=== PATIENT | female | born 1960 | race Caucasian/White ===

== ENCOUNTER → 2018-12-02 | Outpatient (CLI) | payer OTHER, SELFPAY ==
[2018-11-10 16:18] VITALS: BMI 23.1
--- NOTE | 2018-12-02 16:58 | MRI_ITS ---
ACR Level 3 findings have been noted. An addendum which confirms receipt of the report will follow. STUDY: MRI BRAIN WITH AND WITHOUT CONTRAST REASON FOR EXAM: Female, 58 years old. Frequent headaches for 11 months. TECHNIQUE: Standardized multiplanar fat and water weighted pulse sequences were obtained. 18 ml of IV Dotarem was administered for the contrast portion of the examination. COMPARISON: Prior comparison studies are not available for review at this time. FINDINGS: There is mild cerebral atrophy with widening of the extra-axial spaces and ventricular dilatation. Normal white matter tracts of the supratentorial brain. There appears to be some restricted diffusion within the left paramedian and right paramedian jerry possibly related to acute ischemia. This is best seen on diffusion-weighted weighted images #10 and 9. Normal T2* images of the brain without demonstrated susceptibility artifact. There is no demonstrated hemosiderin stain. Normal bilateral basal ganglia. Normal thalami. There is no extra-axial fluid accumulation. Normal flow voids within the major intracranial circulation suggesting patency by spin echo criteria. Normal venous enhancement. There is no enhancing intra-axial or extra-axial abnormality. Normal sella turcica, pituitary gland, infundibular stalk, optic chiasm and hypothalamus. Normal tectal plate and pineal gland. Normal midbrain, jerry and medulla. Normal cerebellum. There are large basal cisterns. Normal bilateral temporal bones. Normal bilateral internal auditory canals. No demonstrated orbital abnormality, within the constraints of a routine brain study. Normal visualized paranasal sinuses. Normal calvarium and skull base. Normal visualized soft tissue structures. Normal visualized upper cervical spine. MRI/Brain W/WO Contrast IMPRESSION: Apparent restricted diffusion involving the jerry. This suggests possible acute ischemia versus other etiologies for cytoxic edema. Electronically Signed: Yenni Sutton MD at 10:04 EDT , Service support ,
== END | disposition home or self-care (01) ==
PROVIDERS: Family Provider Family Medicine; PCP Family Medicine; Referring Provider Family Medicine; Visit Provider Family Medicine
DX: R51 Headache (principal)
CPT/HCPCS: 70553; A9575

== ENCOUNTER → 2019-04-19 | Outpatient (CLI) | payer BC, SELFPAY ==
[2019-04-06 09:23] VITALS: BMI 26.4
[2019-04-19 11:36] LABS: Mucous, Urine 0 SEEN /hpf (<or=2+); Red Blood Cells-Urine 0 SEEN /hpf (0-5); White Blood Cells 0 SEEN /hpf (0-5)
[2019-04-19 12:35] LABS: Color, Urine Yellow (Yellow); Glucose, Dipstick Normal (Normal); Ketone-Dipstick Negative (Negative); Leukocyte Esterase-Dipstick Negative /ul (Negative); Nitrite-Dipstick Negative (Negative); Occult Blood-Urine Negative /ul (Negative); Protein-Dipstick Negative (Negative); Urine Bilirubin Dipstick Negative (Negative); Urine Clarity Clear (Clear); Urine Urobilinogen Normal (Normal)
[2019-04-19 12:46] LABS: Bacteria RARE /hpf (None Seen); Squamous Epithelial Cells - UA 0-5 SEEN /hpf (5-10)
== END | disposition home or self-care (01) ==
LOC: BIMLAB 11:26
PROVIDERS: PCP Family Medicine; Referring Provider Nurse Practitioner Family; Visit Provider Nurse Practitioner Family
DX: R35.0 Frequency of micturition (principal)
CPT/HCPCS: 81001; 87086; 87088

== ENCOUNTER → 2020-07-31 10:04 | Outpatient (CLI) | payer BC, SELFPAY ==
[2020-07-31 09:28] VITALS: BMI 23.1
[2020-07-31 12:41] LABS: Absolute Lymphocyte Count 1.94 X10^3/uL (0.83-4.51); Absolute Neutrophil Count 3.4 X10^3/uL (2.0-7.7); Basophil# 0.04 X10^3/uL; Basophil% 0.7 % (0-1); Eosinophil# 0.16 X10^3/uL; Eosinophils% 2.7 % (0-5); Hematocrit 38.6 % (37-47); Hemoglobin 12.1 g/dL (12.0-15.0); Lymphocyte # 1.94 X10^3/ul (0.83-4.51); Lymphocyte % 32.6 % (19-41); Mean Corp Hgb Conc 31.3 g/dL (32-36); Mean Corpuscular Hgb 26.5 pg (27.0-32.0); Mean Corpuscular Volume 84.5 fL (81-99); Mean Platelet Vol. 9.8 fl (6.2-12.0); Monocyte# 0.42 X10^3/uL; Monocyte% 7.1 % (0-10); NRBC Flagged by Analyzer 0 % (0-5); Neutrophil # 3.37 X10^3/uL (2.7-7.7); Neutrophil % 56.6 % (47-70); Platelet Count 279 K/mm3 (150-450); RBC Distribution Width CV 14.1 % (11.6-14.6); RBC Distribution Width SD 42.9 fl (35.1-43.9); Red Blood Count 4.57 M/mm3 (4.2-5.4)
[2020-07-31 12:51] LABS: ALB/GLOB Ratio 1.1 RATIO (0.9-2.4); AST(SGOT) 17 U/L (15-37); Alanine Aminotransfer ALT/SGPT 23 U/L (13-56); Albumin, Serum 3.7 g/dL (3.2-5.0); Alkaline Phosphatase 65 U/L (45-117); Anion Gap 5 (5-15); BUN 17 mg/dL (7-18); BUN/Creat Ratio 18.2 RATIO (10-20); Calcium,Total 8.7 mg/dL (8.5-10.1); Chloride 106 mmol/L (98-107); Cholesterol 161 mg/dL (200); Color, Urine Yellow (Yellow); Creatinine, Serum 0.93 mg/dL (0.55-1.02); EST Glomerular Filtration Rate 65 mL/min (>60); Est Glom Filt Rate - Afr Amer 79 mL/min (>60); Globulin 3.3 g/dL (2.2-4.2); Glucose 120 mg/dL (74-106); Glucose, Dipstick Normal (Normal); High Density Lipoprotein 42 mg/dL; Ketone-Dipstick 5 mg/dl (Negative); Leukocyte Esterase-Dipstick 25 /ul (Negative); Nitrite-Dipstick Negative (Negative); Occult Blood-Urine Negative /ul (Negative); Potassium 4.3 mmol/L (3.5-5.1); Protein-Dipstick 15 mg/dl (Negative); Sodium Level 141 mmol/L (136-145); Specific Gravity, Urine 1.025 (1.002-1.030); Triglycerides 110 mg/dL; Urine Bilirubin Dipstick Negative (Negative); Urine Clarity Sl. Cloudy (Clear); Urine Urobilinogen Normal (Normal); Very Low Density Lipoprotein 22 mg/dL (5-40)
== END ==
PROVIDERS: PCP Family Medicine; Referring Provider Physician Assistant; Visit Provider Physician Assistant
DX: Z00.00 Encounter for general adult medical examination without abnormal findings (principal); I10 Essential (primary) hypertension; M54.9 Dorsalgia, unspecified
CPT/HCPCS: 36415; 80053; 80061; 81002; 85025

== ENCOUNTER → 2020-09-18 | Outpatient (CLI) | payer BC, SELFPAY ==
[2020-09-18 09:49] VITALS: BMI 23.1
[2020-09-20 20:12] LABS: HPV Reflexed? NOT INDICATED
== END | disposition home or self-care (01) ==
LOC: LABSPEC 10:44
PROVIDERS: PCP Family Medicine; Referring Provider Family Medicine; Visit Provider Family Medicine
DX: Z01.419 Encounter for gynecological examination (general) (routine) without abnormal findings (principal)
CPT/HCPCS: 88175; G0145

== ENCOUNTER → 2020-10-17 09:48 | Outpatient (CLI) | payer BC, SELFPAY ==
--- NOTE | 2020-10-17 09:51 | BI_ITS ---
MAMMOGRAPHY - UNILATERAL DIAGNOSTIC: RIGHT BREAST REASON FOR EXAM: Female, 60 years old. Abnormal screening mammogram. PERTINENT HISTORY: Non-contributory. TECHNIQUE: Compression spot views of the right breast in the mediolateral oblique and craniocaudad views were obtained. CAD: Full Field Digital Mammography with Computer Added Detection was performed. COMPARISON: Comparison is made with prior examination 10/02/2020. FINDINGS: Breast Composition: There are scattered areas of fibroglandular density. There are no dominant masses or suspicious calcifications. No other significant abnormalities are identified. BI/DIAG MAMM W/CAD, UNILAT IMPRESSION: Negative unilateral diagnostic mammogram. Yearly followup mammogram recommended. (A) ASSESSMENT CATEGORY: BIRADS Category 1: Negative. A letter regarding these results will be sent to the patient by the facility within 30 days. Approximately 10% of breast cancers are not detected by mammography. A normal mammogram should not delay biopsy of a clinically suspicious abnormality. Electronically Signed: Nolberto Elizondo MD at 11:32 EDT , Service support ,
== END ==
PROVIDERS: PCP Family Medicine; Visit Provider Surgery
DX: N63.10 Unspecified lump in the right breast, unspecified quadrant (principal); R92.8 Other abnormal and inconclusive findings on diagnostic imaging of breast
CPT/HCPCS: 77065

== ENCOUNTER → 2021-01-09 | Outpatient (CLI) | payer BC, SELFPAY ==
[2021-01-09 10:51] LABS: Color, Urine Yellow (Yellow); Glucose, Dipstick Normal (Normal); Ketone-Dipstick Negative (Negative); Leukocyte Esterase-Dipstick 500 /ul (Negative); Nitrite-Dipstick Positive (Negative); Occult Blood-Urine 150 /ul (Negative); Protein-Dipstick 30 mg/dl (Negative); Specific Gravity, Urine 1.015 (1.002-1.030); Urine Bilirubin Dipstick Negative (Negative); Urine Clarity Cloudy (Clear); Urine Urobilinogen Normal (Normal)
[2021-01-09 10:57] LABS: White Blood Cells >100 SEEN /hpf (0-5)
[2021-01-09 10:58] LABS: Bacteria 1+ /hpf (None Seen); Calcium Oxalate Crystals Ur 1+ /hpf (<or=2+); Mucous, Urine RARE /hpf (<or=2+); Red Blood Cells-Urine 0-5 SEEN /hpf (0-5); Squamous Epithelial Cells - UA 0-5 SEEN /hpf (5-10)
== END | disposition home or self-care (01) ==
LOC: LABSPEC 10:42
PROVIDERS: PCP Family Medicine; Visit Provider Physician Assistant
DX: R30.0 Dysuria (principal)
CPT/HCPCS: 81001; 87086; 87088; 87186

== ENCOUNTER → 2022-12-01 | Outpatient (CLI) | payer OTHER, SELFPAY ==
[2022-12-01 08:12] LABS: Mucous, Urine 0 SEEN /hpf (<or=2+); Red Blood Cells-Urine 0 SEEN /hpf (0-5); White Blood Cells 0 SEEN /hpf (0-5)
[2022-12-01 12:41] LABS: Color, Urine Yellow (Yellow); Glucose, Dipstick Normal (Normal); Ketone-Dipstick Negative (Negative); Leukocyte Esterase-Dipstick 25 /ul (Negative); Nitrite-Dipstick Negative (Negative); Occult Blood-Urine Negative /ul (Negative); Protein-Dipstick Negative (Negative); Urine Bilirubin Dipstick Negative (Negative); Urine Clarity Sl. Cloudy (Clear); Urine Urobilinogen Normal (Normal)
[2022-12-01 12:50] LABS: Bacteria 1+ /hpf (None Seen); Squamous Epithelial Cells - UA 5-10 SEEN /hpf (5-10)
== END | disposition home or self-care (01) ==
PROVIDERS: PCP Family Medicine; Referring Provider Internal Medicine; Visit Provider Internal Medicine
DX: N89.8 Other specified noninflammatory disorders of vagina (principal)
CPT/HCPCS: 81001; 87070; 87205

== ENCOUNTER → 2023-09-04 | Outpatient (CLI) | payer OTHER, SELFPAY ==
[2023-09-04 11:47] LABS: Absolute Lymphocyte Count 1.27 X10^3/uL (0.83-4.51); Absolute Neutrophil Count 2.3 X10^3/uL (2.0-7.7); Basophil# 0.04 X10^3/uL; Eosinophil# 0.08 X10^3/uL; Hematocrit 41.9 % (37-47); Hemoglobin 13.3 g/dL (12.0-15.0); Lymphocyte # 1.27 X10^3/ul (0.83-4.51); Lymphocyte % 31.4 % (19-41); Mean Corp Hgb Conc 31.7 g/dL (32-36); Mean Corpuscular Hgb 27.7 pg (27.0-32.0); Mean Corpuscular Volume 87.1 fL (81-99); Mean Platelet Vol. 10.2 fl (6.2-12.0); Monocyte# 0.37 X10^3/uL; Monocyte% 9.1 % (0-10); NRBC Flagged by Analyzer 0 % (0-5); Neutrophil # 2.28 X10^3/uL (2.7-7.7); Neutrophil % 56.3 % (47-70); Platelet Count 296 K/mm3 (150-450); RBC Distribution Width SD 44.7 fl (35.1-43.9); Red Blood Count 4.81 M/mm3 (4.2-5.4); White Blood Count 4.1 K/mm3 (4.4-11.0)
[2023-09-04 12:05] LABS: ALB/GLOB Ratio 1.1 RATIO (0.9-2.4); AST(SGOT) 37 U/L (15-37); Alanine Aminotransfer ALT/SGPT 46 U/L (13-56); Albumin, Serum 3.8 g/dL (3.2-5.0); Alkaline Phosphatase 68 U/L (45-117); Anion Gap 7 (5-15); BUN 14 mg/dL (7-18); BUN/Creat Ratio 14.8 RATIO (10-20); Calcium,Total 9.3 mg/dL (8.5-10.1); Chloride 109 mmol/L (98-107); Cholesterol 192 mg/dL (200); Creatinine, Serum 0.94 mg/dL (0.55-1.02); EST Glomerular Filtration Rate 64 mL/min (>60); Est Glom Filt Rate - Afr Amer 77 mL/min (>60); Globulin 3.6 g/dL (2.2-4.2); Glucose 139 mg/dL (74-106); High Density Lipoprotein 42 mg/dL; Protein, Total 7.4 g/dL (6.4-8.2); Sodium Level 139 mmol/L (136-145); Triglycerides 121 mg/dL; Very Low Density Lipoprotein 24 mg/dL (5-40)
== END | disposition home or self-care (01) ==
PROVIDERS: PCP Family Medicine; Referring Provider Physician Assistant; Visit Provider Physician Assistant
DX: Z00.00 Encounter for general adult medical examination without abnormal findings (principal); I10 Essential (primary) hypertension
CPT/HCPCS: 36415; 80053; 80061; 85025

== ENCOUNTER → 2023-12-23 | Outpatient (CLI) | payer OTHER, SELFPAY ==
[2024-01-01 11:09] LABS: HPV APTIMA, High Risk Negative (Negative)
== END | disposition home or self-care (01) ==
LOC: LABSPEC 11:10
PROVIDERS: PCP Family Medicine; Referring Provider Family Medicine; Visit Provider Family Medicine
DX: R30.0 Dysuria (principal)
CPT/HCPCS: 87077; 87086; 87088; 87186; 87624; 88142

== ENCOUNTER 2024-03-17 07:29 | Day surgery (SDC) | payer OTHER, SELFPAY ==
--- NOTE | 2024-03-14 09:29 | PAT.ANE_ITS ---
Pre-Assessment Diagnosis/Proposed Procedure Planned Operative Procedure(s): LEFT SHOULDER ARTHROSCOPY SUBCROMIAL DECOMPRESSION Anesthesia History Anesthesia History - account representative: Anesthesia History - account representative Hx Hospitalization No 03/07/24 09:58 Any Problems With Anesthesia No 03/07/24 09:58 Cholinesterase deficiency No 03/07/24 09:58 You/Your Family Experience No 03/07/24 09:58 fever (hyperthermia) with Relationship Recent Exposure to Contagious Disease Does patient have nerve No 03/07/24 09:58 stimulator Patient instructed to have device shut off --Does patient have Pacemaker or ICD? When Was Last Pacemaker Check QUESTION #4 FULL TEXT: You/Your Family Experience fever (hyperthermia) with Anesthesia Last Oral Intake Last Oral intake: Last Oral Intake NPO since Meds taken in AM with sips of water? Meds patient instructed to take am of surgery PONV PONV - account representative: PONV - account representative Female Yes 03/07/24 09:58 HX of Motion Sickness No 03/07/24 09:58 HX of N/V After Surgery No 03/07/24 09:58 Non-Smoker Yes 03/07/24 09:58 Duration of Surgery greater Yes 03/07/24 09:58 than 60 minutes Number of Risk Factors 3 03/07/24 09:58 PONV Score Moderate Risk 03/07/24 09:58 Height & Weight Height & Weight: Anesthesia: Height & Weight Height 5 ft 11 in 12/23/23 08:33 Respiratory Assessment Respiratory Assessment - account representative: Respiratory Tract Infection Hx - account representative Hx Respiratory Tract Infection No 03/07/24 09:58 STOP Sleep Apnea STOP Sleep Apnea - account representative: STOP Sleep Apnea - account representative Hx Hypertension Yes: CONTROLLED WITH MED 03/07/24 09:58 Hx Sleep Apnea No 03/07/24 09:58 CPAP BIPAP Do you snore loudly (louder Yes 03/07/24 09:58 than talking or can be heard Do you often feel tired/ No 03/07/24 09:58 fatigued/ sleepy during daytime? Has anyone observed you stop No 03/07/24 09:58 breathing during sleep? STOP Results Positive 03/07/24 09:58 QUESTION #5 FULL TEXT : Do you snore loudly (louder than talking or can be heard through closed doors)? Tobacco Use History Tobacco Use History - account representative: Tobacco Use History - account representative Tobacco Use Smoking Status Never smoker 03/07/24 09:58 Hx Tobacco Use No 03/07/24 09:58 Years Smoking Packs Smoked per Day Smoking Cessation Date was within the last 15 years Hx Smoking Cessation Date Hx Smoking Cessation Counseling Hematologic Medial History Hematologic Hx - account representative: Hematologic Medical Hx - clinical documentation clerk Hx of Blood Transfusion No 03/07/24 09:58 Hx of Transfusion in last 3 No 03/07/24 09:58 Months Date of Last Transfusion (if within last 3 months) Ever experience any problems No 03/07/24 09:58 with transfusion(s)? Specify any problems Hx of Preganancy in last 3 No 03/07/24 09:58 Months Nurse Filling Out Transfusion DSCHRIBER 03/07/24 09:58 & Questions: Date: 03/07/24 03/07/24 09:58 Time: 09:59 03/07/24 09:58 Patient unable to answer at this time (ie. confused, unrespo /Reproduction History /Reproductive History - account representative: /Reproductive Hx- account representative Hx Now No 03/07/24 09:58 Gestational Age (in weeks): EDC: Hx Hx Para Hx Section SAB No 03/07/24 09:58 PFSH Medical History (Updated 03/07/24 @ 10:04 by Tammy Langley) Wears glasses Post-menopausal Cancer Alcohol use Heartburn Non-smoker Leg cramps Urinary tract infection Breast mass, right Breast lesion on mammography Osteoarthritis Hypertension Arthritis Home Medications ?Medication ?Instructions ?Recorded ?Last Taken ?Type losartan 50 mg tablet 50 mg PO DAILY #90 tabs 12/10 11/02 Unknown Rx acetaminophen 325 mg tablet 650 mg PO Q4H PRN pain Unknown History (Tylenol) magnesium 250 mg tablet 250 mg PO DAILY 03/07/24 Unk nown History vdodtqyh-yvg-jdfcs ac 400 1 tab PO DAILY 03/07/24 Unkn own History mcg-calcium carb 500 mg-vit K1 20 mcg tablet (Women's 50 Plus Daily Formula) vitamin B complex 1 cap PO DAILY 03/07/24 Unkn own History Allergy/AdvReac Type Severity Reaction Status Date / Time No Known Allergies Allergy Verified 03/07/24 09:55 Family History Grandfather Asthma Mother Rheumatoid arthritis Hypertension Ovarian cancer Grandmother Diabetes Father CVA (cerebral vascular accident) Hypertension Daughter Epileptic seizures Surgical History (Updated 03/07/24 @ 10:04 by Tammy Langley) Hx of colonoscopy Hx of total hip arthroplasty Hx of adenoidectomy Hx of tonsillectomy History of left hip replacement Social History Smoking Status: Never smoker alcohol intake: current alcohol intake frequency: a few times a week substance use type: does not use frequency: 1-2 times per week Recommendation Anesthesia Recommendation Anesthesia recommendation: OPTIMIZED for anesthesia
[2024-03-17] VITALS (10 sets, daily range): BP systolic 117–136; BP diastolic 68–89; PULSE 70–81; RESP 16; TEMP 35.8–36.1; O2SAT 91–99; BMI 28.7
[2024-03-17] MEDS: 0.9% Normal Saline (1000mL) 1,000 ML 15 ML IV (07:57)
--- NOTE | 2024-03-17 08:46 | PCM.PRE.AN2 ---
ASA Classification* ASA Classification ASA Classification: 2 Assessment & Plan Anesthesia* Anesthesia Assessment Anesthesia Assessment: Discussed sedation and/or anesthesia options, risks, benefits, and alternatives with patient/parents/legal guardian/POA. Questions invited. The patient/parents/legal guardian/POA seems to understand and agrees to proceed with anesthesia plan. Reviewed the physical assessment, medical history, allergy history and patient home medications list prior to surgery/procedure/anesthetic and documented any changes. Performed airway and anesthesia risk assessments. Anesthesia Type Anesthesia Type: General and Block (Patient is consented for interscalene block.) History Source History Obtained from:: Patient and Chart Anesthesia Focused Assessment* Temperature: 97 F Pulse Rate: 73 Blood Pressure: 134/89 Respiratory Rate: 16 Pulse Ox: 99 Oxygen Delivery Method: Room Air Airway Assessment Mouth opens: >3 cm Mallampati Score: I Teeth Condition: Missing (Patient has 1 missing left lower molar. Rest are tight.) Neck Range of motion (ROM): Full ROM Focused Labs Anesthesia Preop lab: CBC WBC 4.1 K/mm3 (4.4-11.0) L 09/04/23 08:01 09/04/23 RBC 4.81 M/mm3 (4.2-5.4) 09/04/23 08:01 09/04/23 Hgb 13.3 g/dL (12.0-15.0) 09/04/23 08:01 09/04/23 Hct 41.9 % (37-47) 09/04/23 08:01 09/04/23 Plt Count 296 K/mm3 (150-450) 09/04/23 08:01 09/04/23 CHEMISTRY Potassium 4.0 mmol/L (3.5-5.1) 09/04/23 08:01 09/04/23 Sodium 139 mmol/L (136-145) 09/04/23 08:01 09/04/23 BUN 14 mg/dL (7-18) 09/04/23 08:01 09/04/23 Creatinine 0.94 mg/dL (0.55-1.02) 09/04/23 08:01 09/04/23 Glucose 139 mg/dL (74-106) H 09/04/23 08:01 09/04/23 COAG Pre-Assessment Diagnosis/Proposed Procedure Planned Operative Procedure(s): LEFT SHOULDER ARTHROSCOPY SUBCROMIAL DECOMPRESSION Anesthesia History Anesthesia History - coding and reimbursement specialist: Anesthesia History - coding and reimbursement specialist Hx Hospitalization No 03/07/24 09:58 Any Problems With Anesthesia No 03/07/24 09:58 Cholinesterase deficiency No 03/07/24 09:58 You/Your Family Experience No 03/07/24 09:58 fever (hyperthermia) with Relationship Recent Exposure to Contagious No 03/17/24 07:48 Disease Does patient have nerve No 03/07/24 09:58 stimulator Patient instructed to have device shut off --Does patient have Pacemaker No 03/17/24 07:48 or ICD? When Was Last Pacemaker Check QUESTION #4 FULL TEXT: You/Your Family Experience fever (hyperthermia) with Anesthesia Last Oral Intake Last Oral intake: Last Oral Intake NPO since 00:00 03/17/24 07:48 Meds taken in AM with sips of water? Meds patient instructed to take am of surgery PONV PONV - coding and reimbursement specialist: PONV - coding and reimbursement specialist Female Yes 03/07/24 09:58 HX of Motion Sickness No 03/07/24 09:58 HX of N/V After Surgery No 03/07/24 09:58 Non-Smoker Yes 03/07/24 09:58 Duration of Surgery greater Yes 03/07/24 09:58 than 60 minutes Number of Risk Factors 3 03/07/24 09:58 PONV Score Moderate Risk 03/07/24 09:58 Height & Weight Height & Weight: Anesthesia: Height & Weight Height 5 ft 11 in 03/17/24 07:48 Weight: 93.44 kg 03/17/24 07:48 Body Mass Index (BMI) 28.7 03/17/24 07:48 Respiratory Assessment Respiratory Assessment - coding and reimbursement specialist: Respiratory Tract Infection Hx - coding and reimbursement specialist Hx Respiratory Tract Infection No 03/07/24 09:58 STOP Sleep Apnea STOP Sleep Apnea - coding and reimbursement specialist: STOP Sleep Apnea - coding and reimbursement specialist Hx Hypertension Yes: CONTROLLED WITH MED 03/07/24 09:58 Hx Sleep Apnea No 03/07/24 09:58 CPAP BIPAP Do you snore loudly (louder Yes 03/07/24 09:58 than talking or can be heard Do you often feel tired/ No 03/07/24 09:58 fatigued/ sleepy during daytime? Has anyone observed you stop No 03/07/24 09:58 breathing during sleep? STOP Results Positive 03/07/24 09:58 QUESTION #5 FULL TEXT : Do you snore loudly (louder than talking or can be heard through closed doors)? Tobacco Use History Tobacco Use History - coding and reimbursement specialist: Tobacco Use History - coding and reimbursement specialist Tobacco Use Smoking Status Never smoker 03/07/24 09:58 Hx Tobacco Use No 03/07/24 09:58 Years Smoking Packs Smoked per Day Smoking Cessation Date was within the last 15 years Hx Smoking Cessation Date Hx Smoking Cessation Counseling Hematologic Medial History Hematologic Hx - coding and reimbursement specialist: Hematologic Medical Hx - engineering documentation specialist Hx of Blood Transfusion No 03/07/24 09:58 Hx of Transfusion in last 3 No 03/07/24 09:58 Months Date of Last Transfusion (if within last 3 months) Ever experience any problems No 03/07/24 09:58 with transfusion(s)? Specify any problems Hx of Preganancy in last 3 No 03/07/24 09:58 Months Nurse Filling Out Transfusion DSCHRIBER 03/07/24 09:58 & Questions: Date: 03/07/24 03/07/24 09:58 Time: 09:59 03/07/24 09:58 Patient unable to answer at this time (ie. confused, unrespo /Reproduction History /Reproductive History - coding and reimbursement specialist: /Reproductive Hx- coding and reimbursement specialist Hx Now No 03/07/24 09:58 Gestational Age (in weeks): EDC: Hx Hx Para Hx Section SAB No 03/07/24 09:58 Active Medications Active Medications: Current Medications Generic Name Dose Route Start Last Admin Trade Name Freq PRN Reason Stop Dose Admin Cefazolin Sodium 2 gm/ N/A 20 mls @ 400 mls/hr 03/17/24 09:30 IV 03/17/24 09:32 PREOP ONE Sodium Chloride 1,000 mls @ 15 mls/hr 03/17/24 07:40 03/17/24 07:57 IV 03/22/24 20:59 15 mls/hr .Q48H FABIAN Administration Protocol PFSH Medical History Wears glasses Post-menopausal Cancer Alcohol use Heartburn Non-smoker Leg cramps Urinary tract infection Breast mass, right Breast lesion on mammography Osteoarthritis Hypertension Arthritis Home Medications ?Medication ?Instructions ?Recorded ?Last Taken ?Type losartan 50 mg tablet 50 mg PO DAILY #90 tabs 12/29/23 03/16/24 Rx acetaminophen 325 mg tablet 650 mg PO Q4H PRN pain 03/07/24 03/16/24 History (Tylenol) magnesium 250 mg tablet 250 mg PO DAILY 03/07/24 Unknown History mcnqzqmx-vna-mkfzq ac 400 1 tab PO DAILY 03/07/24 Unknown History mcg-calcium carb 500 mg-vit K1 20 mcg tablet (Women's 50 Plus Daily Formula) vitamin B complex 1 cap PO DAILY 03/07/24 Unknown History Allergy/AdvReac Type Severity Reaction Status Date / Time No Known Allergies Allergy Verified 03/17/24 07:47 Family History Grandfather Asthma Mother Rheumatoid arthritis Hypertension Ovarian cancer Grandmother Diabetes Father CVA (cerebral vascular accident) Hypertension Daughter Epileptic seizures Surgical History Hx of colonoscopy Hx of total hip arthroplasty Hx of adenoidectomy Hx of tonsillectomy History of left hip replacement Social History Smoking Status: Never smoker alcohol intake: current alcohol intake frequency: a few times a week substance use type: does not use frequency: 1-2 times per week Review of Systems (Anesthesia) ROS Narrative System reviewed and no additional complaints, except as documented.
[2024-03-17] MEDS: Cefazolin 2 GM in Syringe IV (10:08)
[2024-03-17] MEDS: Epinephrine (1 mg/ml) 1 MG/ML VIAL (10:19)
[2024-03-17] MEDS: Bupiv/Epi 0.25% 30 ML Vial (11:05)
--- NOTE | 2024-03-17 11:41 | PCM.POST.ANE ---
Anesthesia: Postop Eval I Current Vital Signs Temperature: 96.8 F Pulse Rate: 80 Blood Pressure: 126/69 Respiratory Rate: 16 Pulse Ox: 91 Oxygen Delivery Method: Room Air Assessment Airway patent: Yes Spontaneous unlabored respirations: Yes Mental status: Awake and Calm nausea: No Vomiting: No Anesthesia Complication: No Fluid Hydration Crystalloid volume administer (ml): 1,300 Total IV fluid infused: 1,300 Progress Note Anesthesia document: Postop Eval 1 completed: Yes
--- NOTE | 2024-03-17 11:50 | POSTOPAN2_ITS ---
Anesthesia Postop Eval I Sum Postop Eval Completion status Anesthesia document: Postop Eval 1 completed: Yes Anesthesia Postop Eval I Summary Anesthesia Postop Eval I Summary: Anesthesia Postop Eval I: Assessment Summary Airway patent Yes 03/17/24 11:41 GROUND WATER PUMP [email or web address].ACAR Spontaneous unlabored Yes 03/17/24 11:41 GROUND WATER PUMP INSTALLER.ACAR respirations Mental status Awake,Calm 03/17/24 11:41 GROUND WATER PUMP INSTALLER.ACAR nausea No 03/17/24 11:41 GROUND WATER PUMP INSTALLER.ACAR Vomiting No 03/17/24 11:41 GROUND WATER PUMP INSTALLER.ACAR Anesthesia Postop Eval I: Fluid Summary Crystalloid volume administer 1,300 03/17/24 11:41 GROUND WATER PUMP INSTALLER.ACAR (ml) Colloids volume administered ( ml) Blood Product volume administered (ml) Total IV fluid infused 1,300 03/17/24 11:41 GROUND WATER PUMP INSTALLER.ACAR Anesthesia Postop Eval I: Summary Notes Anesthesia Complication No 03/17/24 11:41 GROUND WATER PUMP INSTALLER.ACAR Anesthesia Complication Comment: Post-operative progress note Anesthesia: Postop Eval II Evaluation Mental status: Awake and Calm Pain Level: 0 nausea: No Vomiting: No
--- NOTE | 2024-03-17 11:50 | PCM.POSTANE2 ---
Anesthesia Postop Eval I Sum Postop Eval Completion status Anesthesia document: Postop Eval 1 completed: Yes Anesthesia Postop Eval I Summary Anesthesia Postop Eval I Summary: Anesthesia Postop Eval I: Assessment Summary Airway patent Yes 03/17/24 11:41 RN [email or web address] Spontaneous unlabored Yes 03/17/24 11:41 RN [email or web address].ACAR respirations Mental status Awake,Calm 03/17/24 11:41 RN [email or web address].ACAR nausea No 03/17/24 11:41 RN [email or web address].ACAR Vomiting No 03/17/24 11:41 RN [email or web address].ACAR Anesthesia Postop Eval I: Fluid Summary Crystalloid volume administer 1,300 03/17/24 11:41 RN [email or web address].ACAR (ml) Colloids volume administered ( ml) Blood Product volume administered (ml) Total IV fluid infused 1,300 03/17/24 11:41 RN [email or web address].ACAR Anesthesia Postop Eval I: Summary Notes Anesthesia Complication No 03/17/24 11:41 RN [email or web address].ACAR Anesthesia Complication Comment: Post-operative progress note Anesthesia: Postop Eval II Evaluation Mental status: Awake and Calm Pain Level: 0 nausea: No Vomiting: No
[2024-03-17] MEDS: Ketorolac 15 MG/ML Vial IV (11:52)
--- NOTE | 2024-03-17 14:42 | PCM.OPRPT ---
Operative Report (Standard) Operative Information Date of Procedure: 03/17/24 Pre-Operative Diagnosis: 1. Left shoulder subacromial impingement syndrome 2. Left shoulder SLAP tear with biceps tendinopathy Post-Operative Diagnosis: 1. Left shoulder subacromial impingement syndrome 2. Left shoulder SLAP tear with biceps tendinopathy 3. Left shoulder rotator cuff tear Surgery/Procedure Performed: 1. Left shoulder arthroscopic rotator cuff repair 2. Left shoulder arthroscopic subacromial decompression 3. Left shoulder debridement of labrum, capsule, glenoid articular cartilage, biceps labral junction 4. Left shoulder mini open subpectoral biceps tenodesis [employer] umpire: Yes [employer] Subcontractor: Miriam Owens Tasks completed by administrative personal assistant: Opening & closing and Implanting device Additional licensed occupational therapy assistant?: No Type of Anesthesia: General/Regional RN Documented Start/Stop Times: Operation Date: 03/17/24 09:30 Case Time Into Pre-Op 03/17/24 07:36 Anesthesia Start 03/17/24 09:44 Into Room 03/17/24 09:44 Out of Pre-Op 03/17/24 09:45 Procedure Start 03/17/24 10:19 Procedure End 03/17/24 11:30 Anesthesia End 03/17/24 11:35 Out of Room 03/17/24 11:35 Into Recovery 03/17/24 11:38 Into Phase II Recovery 03/17/24 12:26 Out of Recovery 03/17/24 12:26 Out of Phase II 03/17/24 13:29 Procedure Start Time: 10:19 Procedure Stop Time: 11:30 Select all DRAINS/GRAFTS/IMPLANTS that apply: Implanted device Implanted device details: Arthrex fiber tack RC anchor x 2, Arthrex 4.75 mm bio composite swivel lock anchor x 2, Arthrex metallic biceps button Estimated Blood Loss: 10 cc Specimen collected: No Description of surgery: Patient was identified in preoperative holding area by name, medical record number, and date of . The operative extremity was marked. All questions were answered to the patient satisfaction. Interscalene block was then administered by anesthesia staff prior to the procedure. At time of her procedure, patient was brought to the operative suite and positioned supine a standard operating table. General anesthesia was induced and endotracheal tube placed. Patient was placed in the lateral decubitus position with the left side up. She was held in place with a beanbag. Axillary roll was placed. All bony prominences were well-padded. We spun the bed 45 degrees. We prepped and draped the left upper extremity in normal, sterile orthopedic fashion. We performed timeout confirming the side, site, and operation to be performed. No concerns were voiced and we elected to proceed with surgery. Left upper extremity was placed in arthroscopic traction with 10 pounds of traction applied to the left arm throughout the arthroscopic portion the case, approximately 45 minutes. 2 g Ancef was administered IV prior to incision by anesthesia staff. I then established a standard posterior portal with 11 blade scalpel. Blunt tipped trocar was then used to puncture the glenohumeral joint. Joint was filled with normal saline with epinephrine. Arthroscope was introduced. Degenerative changes were noted throughout the shoulder. 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 The humeral cartilage was minimally degenerative with questionable grade I chondromalacia. Displaced type II SLAP tear was noted with biceps tendinosis and partial fraying as well as synovitis noted around the biceps tendon. Anterior interval portal was then established in standard fashion. Biceps anchor was unstable. Biceps tenotomy was performed with arthroscopic cautery. The tendon was allowed to retract into the groove. The biceps labral junction was then debrided with the arthroscopic shaver as well as the degenerative fraying of the upper third of the labrum. Chondroplasty was performed at the glenoid smoothing any unstable chondral margins. Synovitis was noted along the posterior inferior capsule which was debrided with the arthroscopic shaver. Thickened capsule in the rotator interval was also debrided with cautery. Subscapularis appeared pristine. The articular side of the supraspinatus was frayed but did not not demonstrate any obvious tearing from what I could visualize. I then withdrew the lead scope and reentered the shoulder in the subacromial space. Lateral portal was established. Limited bursectomy was performed. Undersurface of the acromion was then skeletonized with cautery. A prominent anterior downsloping subacromial spur was noted. This was resected to a smooth type I acromion with a arthroscopic bur. I then evaluated the bursal side of the rotator cuff. Without debriding, was able to visualize what appeared to be at least a 90% tear of the supraspinatus. Light debridement clearly demonstrated a full-thickness tear, classic crescent shaped tear approximately 1 cm diameter without significant retraction. I proceeded with double row fixation. Via percutaneous portal to medial row fiber tack anchors were placed approximately 1 cm apart. The conjoint sutures were then passed from the fiber tack anchors through the rotator cuff. The 2 sutures were then and a single limb was passed through our lateral row anchors in standard fashion. Swivel lock anchors were placed at the lateral margin of the greater tuberosity for a lateral row after sutures were tensioned. There was excellent fixation achieved. There were 2 small dogears both anterior and posterior to our double row which were reduced with the self locking mechanism of the lateral row anchors respectively. Sutures were cut flush with the anchors. The tear was stable to probing and rotation. Nursing staff noted that the arthroscope was not saving images during our intra-articular portion of the case so I returned to the glenohumeral joint space and captured arthroscopic photos well after our debridement and tenotomy. Visualizing the articular side of the rotator cuff demonstrated excellent reapproximation and compression at the red cliff footprint of the supraspinatus. I then really withdrew the arthroscope. Portal sites were closed interrupted [id number] fashion with 3-0 nylon suture. Arm was taken out of traction. I made an oblique incision along the inferior border of the pectoralis major tendon. Blunt dissection was carried down to the level of the fascia. Fascia was opened. Long head biceps tendon was identified and retrieved out the wound. Significant tendinosis was noted throughout and tenosynovitis. Whipstitch was performed near the musculotendinous junction with a #2 FiberWire. I then passed suture tails alternatingly through a biceps button. I then drilled unicortically for an onlay tenodesis in the subpectoral region of the bone after freeing overlying periosteum. Button was then placed in the intramedullary canal of the humerus and flipped. Sutures were tensioned and tied and cut. This wound was copiously irrigated with normal saline solution. Field block was administered with 10 cc quarter percent bupivacaine with epinephrine. Sterile compression dressing was applied. UltraSling applied. Patient was repositioned supine extubated in the operative suite. She was transferred to her gurney and subsequently to PACU in stable condition. Need for skilled licensed occupational therapy assistant: Miriam Owens PA-C was critical to the outcome of the case. During the course of the procedure the physician licensed occupational therapy assistant played a vital role. Her intimate knowledge of my steps in the procedure aided in safe and expedient completion of the procedure. The PA played a vital role in positioning particularly in obtaining the appropriate positioning. The PA was also vital in the retraction of soft tissues during the exposure and protecting vital structures. The PA was also vital and obtaining tendon reduction and assisting with hardware placement. She also played a vital role in closure and sling application with my direct supervision. Surgical Findings: Type II SLAP tear, biceps tendinosis and tenosynovitis, synovitis within the glenohumeral joint, grade 3 glenoid chondromalacia, prominent downsloping subacromial spur, full-thickness supraspinatus tear, stable following fixation. Complications Complications: No Admit VTE Documentation VTE Present on Admission: No VTE Mechan Device Prophylaxis: SCD's VTE Pharm Prophylaxis ordered?: Yes
== END 2024-03-17 13:29 | disposition home or self-care (01) ==
LOC: SDC 07:31 → AC 07:33
PROVIDERS: PCP Family Medicine; Referring Provider Student in an Organized Health Care Education/Training Program; Visit Provider Student in an Organized Health Care Education/Training Program
PROC: (CPT 29827; principal; 2024-03-17 09:10)
DX: M75.102 Unspecified rotator cuff tear or rupture of left shoulder, not specified as traumatic (principal); M75.22 Bicipital tendinitis, left shoulder; M75.42 Impingement syndrome of left shoulder; S43.432A Superior glenoid labrum lesion of left shoulder, initial encounter; X58.XXXA Exposure to other specified factors, initial encounter; M65.912 Unspecified synovitis and tenosynovitis, left shoulder; I10 Essential (primary) hypertension; Z79.899 Other long term (current) drug therapy
CPT/HCPCS: 29827; 23430; 29823; 29826; 01630; 64415; C1713; J2405

== ENCOUNTER → 2024-12-07 | Outpatient (CLI) | payer BC, SELFPAY ==
[2024-12-07 18:07] LABS: Hematocrit 39.0 % (37-47); Hemoglobin 13.0 g/dL (12.0-15.0); Mean Corp Hgb Conc 33.3 g/dL (32-36); Mean Corpuscular Volume 88.0 fL (81-99); Mean Platelet Vol. 10.6 fl (6.2-12.0); Platelet Count 291 K/mm3 (150-450); RBC Distribution Width CV 12.9 % (11.6-14.6); RBC Distribution Width SD 41.9 fl (35.1-43.9); Red Blood Count 4.43 M/mm3 (4.2-5.4); White Blood Count 5.0 K/mm3 (4.4-11.0)
[2024-12-07 18:32] LABS: AST(SGOT) 67 U/L (<=31); Alanine Aminotransfer ALT/SGPT 67 U/L (<=34); Albumin, Serum 4.3 g/dL (3.4-4.8); Alkaline Phosphatase 70 U/L (35-104); Anion Gap 11 (5-15); BUN 17 mg/dL (4-19); BUN/Creat Ratio 20.9 RATIO (10-20); Calcium,Total 9.4 mg/dL (7.6-11.0); Carbon Dioxide 24.3 mmol/L (21.0-32.0); Chloride 103 mmol/L (98-108); Globulin 2.4 g/dL (2.2-4.2); Glucose 129 mg/dL (70-99); Potassium 3.6 mmol/L (3.3-5.1)
== END | disposition home or self-care (01) ==
LOC: MTLAB 14:59
PROVIDERS: PCP Family Medicine; Referring Provider Family Medicine; Visit Provider Family Medicine
DX: Z00.00 Encounter for general adult medical examination without abnormal findings (principal)
CPT/HCPCS: 36415; 80053; 85027

== ENCOUNTER → 2024-12-13 | Outpatient (CLI) | payer BC, SELFPAY ==
--- NOTE | 2024-12-13 07:57 | US_ITS ---
PROCEDURE: US/Liver
== END | disposition home or self-care (01) ==
LOC: US 07:53
PROVIDERS: PCP Family Medicine; Referring Provider Family Medicine; Visit Provider Family Medicine
DX: R74.8 Abnormal levels of other serum enzymes (principal)
CPT/HCPCS: 76705